=== PATIENT | female | born 1995 | race African-American/Black ===

== ENCOUNTER 2021-01-29 15:11 | Emergency (ER) | payer MEDICAID ==
[2021-01-29 15:48] VITALS: BP 112/73
--- NOTE | 2021-01-29 16:22 | ED Physician Documentation ---
History of Present Illness - Stated complaint Stated Complaint: CONGESTION,BODY ACHES - Chief complaint Chief Complaint: General - History obtained from History obtained from: Patient, Family - History of Present Illness Timing: Today Pain level max: 0 Pain level now: 0 - Additonal information Additional information: 26-year-old female states that she believes she was exposed to Covid about 2 weeks ago. She states she has had a mild dry cough and body aches since that time. Did not receive her Covid vaccination. Nothing makes it better or worse. No abdominal pain. Mild rhinorrhea and congestion. No vomiting. Denies any possibility of Review of Systems Constitutional: denies: Fever, Chills Nose: reports: Rhinorrhea / runny nose Cardiac: denies: Chest pain / pressure Respiratory: denies: Dyspnea, Wheezing GI: denies: Abdominal Pain, Vomiting, Diarrhea Skin: denies: Rash Musculoskeletal: denies: Neck pain, Back pain Neurologic: denies: Headache PD PAST MEDICAL HISTORY - Past Medical History Past Medical History: No - Past Surgical History Past Surgical History: Yes - Present Medications Home Medications: Ambulatory Orders Medication Instructions Recorded Confirmed HYDROcod/ACETAM 5/325 [Vicodin 1 - 2 ea PO Q6H #15 tablet 11/23/12 5/325] Sulfamethox/Trimeth 800/160 1 each PO BID #14 tablet 11/23/12 [Bactrim Ds] oxyCODONE/ACET 5/325 [Percocet 5 1 - 2 tab PO Q4-6H PRN #20 tablet 11/25/12 mg/325 mg] Benzonatate [Tessalon] 200 mg PO TID PRN #30 cap 01/29/21 Cetirizine HCl/Pseudoephedrine 1 each PO BID PRN #30 ea 01/29/21 [Zyrtec-D Tablet] - Allergies Allergies/Adverse Reactions: Allergies Allergy/AdvReac Type Severity Reaction Status Date / Time No Known Drug Allergies Allergy Verified 01/29/21 15:14 - Living Situation Living Arrangement: reports: Other (intermediate) - Social History Does the pt smoke?: No Smoking Status: Never smoker Does the pt drink ETOH?: No Does the pt have substance abuse?: No - Immunizations Immunizations are current?: Yes PD ED PE NORMAL - Vitals Vital signs reviewed: Yes - General General: Alert and oriented X 3, No acute distress - HEENT HEENT: Moist mucous membranes - Neck Neck: Supple, no meningeal sign - Cardiac Cardiac: RRR - Respiratory Respiratory: No respiratory distress, Clear bilaterally - Abdomen Abdomen: Soft, Non tender, Non distended - Derm Derm: Warm and dry - Neuro Neuro: Alert and oriented X 3 - Psych Psych: Normal mood Results - Vitals Vitals: Vital Signs - 24 hr 01/29/21 15:14 Temperature 98.6 C H Heart Rate 90 Respiratory 16 Rate Blood Pressure 112/73 O2 Saturation 100 Oxygen O2 Source Room air PD MEDICAL DECISION MAKING - ED course Complexity details: considered differential, d/w patient ED course: Patient with Covid exposure. Requesting Covid test. This was performed. We will have the patient quarantine until results are available. No hypoxia. No respiratory distress. No indication for imaging at this time. Patient counseled regarding signs and symptoms for which I believe and urgent re- evaluation would be necessary. Patient with good understanding of and agreement to plan and is comfortable going home at this time This document was made in part using voice recognition software. While efforts are made to proofread this document, sound alike and grammatical errors may occur. Departure - Departure Disposition: Home, Self Care Clinical Impression: Viral URI Condition: Good Instructions: ED URI Viral Follow-Up: your,doctor as needed. [Other] Prescriptions: Benzonatate [Tessalon] 200 mg PO TID PRN #30 cap PRN Reason: Cough Cetirizine HCl/Pseudoephedrine [Zyrtec-D Tablet] 1 each PO BID PRN #30 ea PRN Reason: nasal congestion Comments: Follow-up with your doctor as needed for further care. You have a Covid test pending. You need to self quarantine until the result is done and negative. Do not leave your house. Do not get near anybody. The results should be done in 48 to 72 hours. We will call with a positive result, the fastest way to get a negative result for confirmation though is to go to the hospital website at [email or web address], click on the my [facility] tab and sign up for the patient portal. If any friends or family get sick and would like to have a Covid test done, but do not have signs or symptoms that would necessitate being hospitalized, we encourage testing through our coronavirus swabbing station, call [phone] to schedule an appointment. Discharge Date/Time: 01/29/21 16:41
== END 2021-01-29 16:41 | disposition home or self-care (01) ==
LOC: ED 15:11
DX: U07.1 COVID-19 (principal)
CPT/HCPCS: 99283; 99284

== ENCOUNTER 2021-11-06 18:52 | Emergency (ER) | payer OTHER, MEDICAID ==
[2021-11-06 18:59] VITALS: BP 109/62
--- NOTE | 2021-11-06 19:06 | ED Physician Documentation ---
History of Present Illness - Stated complaint Stated Complaint: FIT - Chief complaint Chief Complaint: General - History obtained from History obtained from: Patient, Police - History of Present Illness Timing: Today Pain level max: 0 Pain level now: 0 - Additonal information Additional information: Patient was arrested by police. She states that she is 3 months . She has no complaints. No pelvic pain, vaginal bleeding. No nausea or vomiting. Police brought her here to "get checked" before taking her to detention. They have no specific complaints or concerns either. They state that their chief told them to come in. Patient is a 5 para 4. Review of Systems Constitutional: denies: Fever Respiratory: denies: Cough GI: denies: Abdominal Pain, Vomiting, Diarrhea : denies: Dysuria, Frequency, Hesitancy, Discharge Skin: denies: Rash Musculoskeletal: denies: Neck pain, Back pain Neurologic: denies: Headache PD PAST MEDICAL HISTORY - Past Medical History Past Medical History: No - Past Surgical History Past Surgical History: Yes - Present Medications Home Medications: Ambulatory Orders Medication Instructions Recorded Confirmed HYDROcod/ACETAM 5/325 [Vicodin 1 - 2 ea PO Q6H #15 tablet 11/23/12 5/325] Sulfamethox/Trimeth 800/160 1 each PO BID #14 tablet 11/23/12 [Bactrim Ds] oxyCODONE/ACET 5/325 [Percocet 5 1 - 2 tab PO Q4-6H PRN #20 tablet 11/25/12 mg/325 mg] Benzonatate [Tessalon] 200 mg PO TID PRN #30 cap 01/29/21 Cetirizine HCl/Pseudoephedrine 1 each PO BID PRN #30 ea 01/29/21 [Zyrtec-D Tablet] - Allergies Allergies/Adverse Reactions: Allergies Allergy/AdvReac Type Severity Reaction Status Date / Time No Known Drug Allergies Allergy Verified 11/06/21 18:57 - Social History Does the pt smoke?: No Smoking Status: Never smoker Does the pt drink ETOH?: No Does the pt have substance abuse?: No - Immunizations Immunizations are current?: Yes PD ED PE NORMAL - Vitals Vital signs reviewed: Yes - General General: Alert and oriented X 3, No acute distress - HEENT HEENT: PERRL, Moist mucous membranes - Neck Neck: Supple, no meningeal sign - Cardiac Cardiac: RRR, Strong equal pulses - Respiratory Respiratory: No respiratory distress, Clear bilaterally - Abdomen Abdomen: Soft, Non tender, Non distended - Derm Derm: Warm and dry - Extremities Extremities: No edema - Neuro Neuro: Alert and oriented X 3 - Psych Psych: Normal mood, Normal affect Results - Vitals Vitals: Vital Signs - 24 hr 11/06/21 18:53 Temperature 37.0 C Heart Rate 91 Respiratory 20 Rate Blood Pressure 109/62 O2 Saturation 100 Oxygen O2 Source Room air PD MEDICAL DECISION MAKING - ED course Complexity details: considered differential, d/w patient ED course: Bedside ultrasound reveals an intrauterine , biparietal diameter approximately 15 weeks 5 days. heart rate of 158 bpm. Fetus appears active. The patient has no complaints today. Patient encouraged to follow-up with OB for care and to continue her vitamins that she states she is taking at home. She will be discharged into police custody. This document was made in part using voice recognition software. While efforts are made to proofread this document, sound alike and grammatical errors may occur. Departure - Departure Disposition: 01 Home, Self Care Clinical Impression: Intrauterine Condition: Good Instructions: ED Care, ED Preg Established Normal Sxs Follow-Up: [facility] [Provider Group] - Within 1 week Comments: You are approximately 15 weeks and 5 days along currently. There is a heartbeat today. It is important that you follow-up with OB for further care. Continue your vitamins.
== END 2021-11-06 19:12 | disposition home or self-care (01) ==
LOC: ED 18:52
DX: Z02.89 Encounter for other administrative examinations (principal); Z3A.15 15 weeks gestation of pregnancy
CPT/HCPCS: 99281; 99282

== ENCOUNTER 2022-04-29 10:00 | Outpatient (CLI) | payer MEDICAID | END 2022-04-29 23:59 | disposition critical access hospital (66) | LOC: EMS 10:00 | DX: Z34.83 Encounter for supervision of other normal pregnancy, third trimester (principal) | CPT/HCPCS: A0425; A0429; A0999 ==

== ENCOUNTER 2022-04-29 10:20 | Inpatient (IN) | payer MEDICAID ==
[2022-04-29] MEDS ORDERED: LACTATED RINGERS 1,000 ML ONE (10:33)
[2022-04-29] MEDS ORDERED: TRANEXAMIC ACID IN NACL 1,000 MG/100 ML BAG IV PRN (10:36)
[2022-04-29] MEDS ORDERED: CARBOPROST TROMETHAMINE 250 MCG/ML AMP IM PRN (10:36)
[2022-04-29] MEDS ORDERED: miSOPROStoL 200 MCG TABLET BC PRN (10:36)
[2022-04-29] MEDS ORDERED: LABETALOL 20 MG/4 ML SYRINGE IVP PRN ×3 (10:36)
[2022-04-29] MEDS ORDERED: hydrALAZINE INJ 20 MG/ML VIAL IVP PRN ×2 (10:36)
[2022-04-29] MEDS ORDERED: METHYLERGONOVINE 0.2 MG/ML VIAL IM PRN (10:36)
[2022-04-29] MEDS ORDERED: miSOPROStoL 200 MCG TABLET PR PRN (10:36)
[2022-04-29] MEDS ORDERED: NIFEdipine 10 MG CAPSULE PO PRN (10:36)
[2022-04-29] MEDS ORDERED: OXYTOCIN/SODIUM CHLORIDE 500 ML IV PRN ×2 (10:36→15:21)
[2022-04-29] MEDS ORDERED: OXYTOCIN 10 UNIT/ML VIAL IM PRN (10:36)
[2022-04-29] MEDS ORDERED: LACTATED RINGERS 500 ML IV ONE (10:36)
[2022-04-29] MEDS ORDERED: SODIUM CHLORIDE FLUSH 0.9% 10 ML SYRINGE IVP PRN ×2 (10:36→15:21)
[2022-04-29] MEDS ORDERED: ceFAZolin 2 GM in SODIUM CHLORIDE 0.9% 100ML 100 ML IV STA (10:41)
[2022-04-29] MEDS ORDERED: SODIUM CHLORIDE FLUSH 0.9% 10 ML SYRINGE IVP SCH ×2 (11:00→17:00)
[2022-04-29] MEDS ORDERED: CEFAZOLIN 2G/50ML 0.9% NS 2 GM/50 ML BAG IV ONE (11:00)
[2022-04-29] MEDS ORDERED: LACTATED RINGERS 1,000 ML IV SCH ×3 (11:00→16:00)
[2022-04-29] MEDS ORDERED: fentaNYL 100 MCG/2 ML VIAL ONE (11:03)
[2022-04-29] MEDS ORDERED: OXYTOCIN 10 UNIT/ML VIAL ONE (11:04)
--- NOTE | 2022-04-29 11:07 | ANESTHESIA ---
Pre-Anesthesia VS, & Labs - Diagnosis repeat section - Procedure section Vital Signs: Temp Pulse Resp BP Pulse Ox O2 Flow Rate 37.0 C 118 H 18 04/29/22 10:30 04/29/22 10:30 04/29/22 10:30 Height: 5 ft 3 in Weight (kg): 74.843 kg Body Mass Index: 29.2 BMI Classification: Overweight - NPO Other (pretzels at 10am, oatmeal at 8am) - Is Patient ?: Yes Home Medications and Allergies Active Medications Carboprost Tromethamine (Carboprost Tromethamine 250 Mcg/Ml Amp) 250 mcg IM .ONCE PRN PRN Reason: Hemorrhage Hydralazine HCl (Hydralazine Inj 20 Mg/Ml Vial) 5 - 10 mg IVP Q20M PRN; Protocol PRN Reason: SBP> or= 160 OR DBP> or= 110 Hydralazine HCl (Hydralazine Inj 20 Mg/Ml Vial) 10 mg IVP .ONCE PRN; Protocol PRN Reason: SBP> or= 160 OR DBP> or= 110 Oxytocin/Sodium Chloride (Pitocin/Sodium Chloride) 500 mls @ 999 mls/hr IV PRN PRN; Protocol PRN Reason: POST- HEMORR PREVENTION Tranexamic Acid (Tranexamic 1,000 Mg/100ml-Nacl) 1,000 mg in 100 mls @ 600 mls/hr IV Q30M PRN PRN Reason: EBL >1200mL and within 3hr Lactated Ringer's (Lr) 500 mls @ 999 mls/hr IV ONCE ONE Stop: 04/29/22 11:06 Lactated Ringer's (Lr) 1,000 mls @ 125 mls/hr IV .Q8H NAUN Cefazolin/Sodium Chloride (Ancef 2 Grams/50ml) 2 gm in 50 mls @ 100 mls/hr IV ONCE ONE Stop: 04/29/22 11:29 Labetalol HCl (Labetalol 20 Mg/4 Ml Syringe) 20 - 80 mg IVP Q10M PRN; Protocol PRN Reason: SBP> or= 160 OR DBP> or= 110 Labetalol HCl (Labetalol 20 Mg/4 Ml Syringe) 20 mg IVP .ONCE PRN; Protocol PRN Reason: SBP> or= 160 OR DBP> or= 110 Labetalol HCl (Labetalol 20 Mg/4 Ml Syringe) 20 - 40 mg IVP Q10M PRN; Protocol PRN Reason: SBP> or= 160 OR DBP> or= 110 Methylergonovine Maleate (Methylergonovine 0.2 Mg/Ml Vial) 0.2 mg IM .ONCE PRN PRN Reason: Hemorrhage Misoprostol (Misoprostol 200 Mcg Tablet) 600 mcg BC .ONCE PRN PRN Reason: Hemorrhage Misoprostol (Misoprostol 200 Mcg Tablet) 800 mcg MT .ONCE PRN PRN Reason: Hemorrhage Nifedipine (Nifedipine 10 Mg Capsule) 10 - 20 mg PO Q20M PRN; Protocol PRN Reason: SBP> or= 160 OR DBP> or= 110 Oxytocin (Oxytocin 10 Unit/Ml Vial) 10 unit IM .ONCE PRN PRN Reason: Step One if no IV access. Sodium Chloride (Sodium Chloride Flush 0.9% 10 Ml Syringe) 10 ml IVP PRN PRN PRN Reason: NEEDED PER PROVIDER ORDERS Sodium Chloride (Sodium Chloride Flush 0.9% 10 Ml Syringe) 10 ml IVP Q8H NAUN Allergies/Adverse Reactions: Allergies Allergy/AdvReac Type Severity Reaction Status Date / Time No Known Drug Allergies Allergy Verified 11/06/21 18:57 Anes History & Medical History - Anesthetic History Anesthesia Complications: reports: No previous complications - Medical History Cardiovascular: reports: None Pulmonary: reports: None Smoking Status: Never smoker History of Cancer?: No - Surgical History Gynecologic: reports: section - Obstetrical History Complications: reports: None OB Anesthesia History: 4 C/S's in past, was getting care at [facility], in labor 1cm dilated per Dr. Chen Exam General: Alert, Oriented x3, Mild distress Dental: WNL Mouth Opening: Greater than 4 Fingerbreadths Mallampati classification: I Thyromental Distance: greater than 6 cm Respiratory: Lungs clear Cardiovascular: Regular rate Plan Anesthesia Type: Spinal Consent for Procedure(s) Verified and Reviewed: Yes Code Status: Attempt Resuscitation ASA classification: 2-Mild systemic disease Is this case an emergency?: Yes
[2022-04-29 11:13] LABS: BASOPHILS % (AUTO) 0.6 %; EOSINOPHILS % (AUTO) 0.6 %; HCT - HEMATOCRIT 36.6 % (37.0-47.0); HGB - HEMOGLOBIN 11.6 g/dL (12.0-16.0); LYMPHOCYTES # (AUTO) 1.4 10^3/uL (1.5-3.5); LYMPHOCYTES % (AUTO) 38.9 %; MEAN CORPUSCULAR HEMOGLOBIN 28.6 pg (27.0-31.0); MEAN CORPUSCULAR HGB CONC 31.7 g/dL (32.0-36.0); MEAN CORPUSCULAR VOLUME 90.4 fL (81.0-99.0); MEAN PLATELET VOLUME 11.5 fL (7.9-10.8); MONOCYTES # (AUTO) 0.4 10^3/uL (0.0-1.0); MONOCYTES % (AUTO) 11.8 %; NEUTROPHILS # (AUTO) 1.7 10^3/uL (1.5-6.6); NEUTROPHILS % (AUTO) 48.1 %; PLT - PLATELET COUNT 180 10^3/uL (130-450); RED BLOOD COUNT 4.05 10^6/uL (4.20-5.40); RED CELL DISTRIBUTION WIDTH 12.9 % (12.0-15.0); WHITE BLOOD COUNT 3.5 x10^3/uL (4.8-10.8)
--- NOTE | 2022-04-29 11:27 | HISTORY & PHYSICAL EXAMINATION ---
Admit History - Visit Reason Visit Reason: Contractions - : 5 Parity: 4 Care: positive: None Risk/History: positive: None Complications This : positive: <than 3 visits Smoking Status: Current every day smoker Meds/Allgy - Home Medications Home Medications: Ambulatory Orders Medication Instructions Recorded Confirmed HYDROcod/ACETAM 5/325 [Vicodin 1 - 2 ea PO Q6H #15 tablet 11/23/12 5/325] Sulfamethox/Trimeth 800/160 1 each PO BID #14 tablet 11/23/12 [Bactrim Ds] oxyCODONE/ACET 5/325 [Percocet 5 1 - 2 tab PO Q4-6H PRN #20 tablet 11/25/12 mg/325 mg] Benzonatate [Tessalon] 200 mg PO TID PRN #30 cap 01/29/21 Cetirizine HCl/Pseudoephedrine 1 each PO BID PRN #30 ea 01/29/21 [Zyrtec-D Tablet] - Allergies Allergies/Adverse Reactions: Allergies Allergy/AdvReac Type Severity Reaction Status Date / Time No Known Drug Allergies Allergy Verified 11/06/21 18:57 Review of Systems - All Other Systems All Other Systems: reports: Reviewed and negative Physical - Abdominal Exam Vital Signs: Temp Pulse Resp BP Pulse Ox O2 Flow Rate 98.6 F 118 H 18 04/29/22 10:30 04/29/22 10:30 04/29/22 10:30 Contraction Frequency (min/apart): 4 Contraction Intensity: positive: Mild to moderate Uterine Resting Tone: positive: Soft - Monitoring Heart Rate Baseline: 140 Strip Review: positive: Category I - Presentation Presentation: positive: Vertex - Vaginal Exam Membranes: positive: Membranes intact Dilation (in cm): 1 Effacement (%): 100 Station: positive: -2 Cervical Position: positive: Midposition Plan for Labor - Plan For Labor I expect patient to be DC'd or transferred within 96 hours.: Yes Plan for Labor: 27yo at about 40w by bedside US during [facility] visit at 15w brought in by ambulance in labor 1. Prior CD x4 per patient 2. No care, per patient care at [facility]. When attempting to obtain records, Lela says she has not been a patient there since 2019. 3. Tobacco use daily 10cig/day 4. Declines drug testing - Admit - labs - Plan for RCD - Obtain US to confirm dating/growth and assess placenta for location and accreta risk - Social work consult placed. Support person with patient, per patient her father's girlfriend. Initially patient reported her children live with family. Later says they live with her but are staying with family while she delivers today.
[2022-04-29 11:30] LABS: ALBUMIN 3.2 g/dL (3.2-5.5); ALBUMIN/GLOBULIN RATIO 0.9 (1.0-2.2); BILIRUBIN,TOTAL 0.6 mg/dL (0.2-1.0); CALCIUM 8.6 mg/dL (8.5-10.3); CREATININE 0.7 mg/dL (0.4-1.0); POTASSIUM 3.6 mmol/L (3.5-5.0); TOTAL PROTEIN 6.9 g/dL (6.7-8.2)
[2022-04-29] MEDS ORDERED: TERBUTALINE 1 MG/ML VIAL SUBQ ONE (11:44)
[2022-04-29] MEDS ORDERED: TERBUTALINE 1 MG/ML VIAL SUBQ STA ×2 (11:49→13:08)
--- NOTE | 2022-04-29 12:29 | Ultrasound Report ---
PROCEDURE: OB F/U or Repeat INDICATIONS: Unknown gestation, placenta location OUTSIDE/PRIOR DATING DATA: Last menstrual period (LMP): Unknown. LMP-based estimated date of delivery (FINN): Not available. First dating scan (date and location): 04/29/2022, [facility]. Estimated date of delivery (FINN) from first dating scan: 05/11/2022. TECHNIQUE: Real-time scanning was performed of the fetus, with image documentation and biometric measurements. COMPARISON: None. FINDINGS: General: A single living intrauterine gestation is present. Presentation: Vertex Placenta: Placental position is anterior, without previa. Amniotic fluid index: 11.4 cm, 38.8 for gestational age. heart rate: 157 beats per minute. Maternal cervical canal: 2.6 cm long; normal length is 2.5 cm or more. biometrics: Biparietal diameter: 9.27 cm, 37 weeks, 5 days Head circumference: 33.82 cm, 38 weeks, 6 days Abdominal circumference: 33.86 cm, 37 weeks, 5 days Femur length: 7.59 cm, 38 weeks, 6 days Estimated gestational age from initial scan: Not available Composite gestational age from present scan: 38 weeks, 2 days Estimated weight and percentile: 3402 g, 31.9% Measurement variability in biometric dating: +/- 10 days from 12-20 weeks gestation, +/- 2 weeks from 20-30 weeks gestation, +/- 3 weeks at 30 weeks gestation or more. Other: Not applicable. IMPRESSION: 1. Single live intrauterine gestation with a composite gestational age of 38 weeks, 2 days. 2. Cervical length of 2.6 cm. 3. JAMES within normal limits. Reviewed by: Manuela Galloway MD on 04/29/2022 12:28 PM PDT Approved by: Manuela Galloway MD on 04/29/2022 12:28 PM PDT Station ID: [id number]
[2022-04-29 12:34] LABS: ESTIMATED AVERAGE GLUCOSE 114 mg/dL (70-100); HEMOGLOBIN A1c% 5.6 % (4.27-6.07)
[2022-04-29] MEDS ORDERED: PHENYLEPHRINE 10 MG/ML VIAL ONE (13:35)
[2022-04-29] MEDS ORDERED: MORPHINE PF 5 MG/10 ML VIAL ONE (13:36)
--- OUTSIDE RECORDS SUMMARY | 2022-04-29 13:56 | EXTERNAL MEDICAL SUMMARY RPT | Continuity of Care Document ---
:1995 Author Organization [facility] Address [address] [place] [address] Phone Care Team Providers Name Role Phone Unavailable Unavailable Unavailable Ariela Rn, Génesis Unavailable Unavailable Ariela Rn, Génesis Unavailable Unavailable Allergies No information. Encounters No information. Functional Status No information. Immunizations No information. Medications date description facility +0000 No Known Medications [facility] [phone] No Known Medications [facility] Problems No information. Procedures date description facility +0000 Visit Code Hold [facility] +0000 Visit Code Hold [facility] +0000 Visit Code Hold [facility] [phone] Visit Code Hold [facility] [phone] Visit Code Hold [facility] Results/Labs No information. Social History date description facility +0000 Unknown if ever smoked [facility] [id number] Unknown if ever smoked [facility] Vital Signs date measurement value units +0000 weight_metric weight_metric 76.2 kg [id number]+0000 weight_standard weight_standard 168 lb [id number]+0000 BP_diastolic BP_diastolic 65 mm[H g] [id number]+0000 BP_systolic BP_systolic 106 mm[Hg] [id number]+0000 heart_rate heart_rate 107 /min [id number]+0000 respiration_rate respiration_rate 14 /min [id number]+0000 temperature_metric temperature_metric 37.39 C [id number]+0000 temperature_standard temperature_standard 9 9.3 F +0000 weight_metric weight_metric 76.2 kg +0000 weight_standard weight_standard 168 lb +0000 BP_diastolic BP_diastolic 64 mmHg +0000 BP_systolic BP_systolic 97 mmHg +0000 heart_rate heart_rate 72 /min +0000 respiration_rate respiration_rate 16 /min +0000 temperature_metric temperature_metric 36.44 C +0000 temperature_standard temperature_standard 9 7.6 F
[2022-04-29] MEDS ORDERED: NALOXONE 0.4 MG/ML VIAL IVP PRN (13:59)
[2022-04-29] MEDS ORDERED: fentaNYL 100 MCG/2 ML VIAL IVP PRN (13:59)
[2022-04-29] MEDS ORDERED: ONDANSETRON 4 MG/2 ML VIAL IVP PRN (13:59)
[2022-04-29] MEDS ORDERED: ATROPINE ABBOJECT 1 MG/10 ML SYRINGE IVP PRN (13:59)
[2022-04-29] MEDS ORDERED: METOCLOPRAMIDE 10 MG/2 ML VIAL IVP PRN (13:59)
[2022-04-29] MEDS ORDERED: ePHEDrine 50 MG/ML VIAL IVP PRN (13:59)
[2022-04-29] MEDS ORDERED: MORPHINE 2 MG/ML CARPUJECT IVP PRN (13:59)
[2022-04-29] MEDS ORDERED: HYDROmorphone 0.5 MG/0.5 ML SYRINGE IVP PRN (13:59)
[2022-04-29] MEDS ORDERED: ONDANSETRON 4 MG/2 ML VIAL ONE (14:07)
[2022-04-29] MEDS ORDERED: LACTATED RINGERS 1,000 ML IV ONE (15:04)
--- NOTE | 2022-04-29 15:12 | ANESTHESIA POST OP EVALUATION ---
Anesthesia Post Eval - Post Anesthesia Eval Vitals: Last Vital Signs Temp 37.0 C 04/29/22 11:07 Pulse 95 04/29/22 11:07 Resp 20 04/29/22 11:07 BP 136/83 H 04/29/22 11:07 Pulse Ox O2 Flow Rate CV Function Including HR & BP: Stable Pain Control: Satisfactory Nausea & Vomiting: Negative Mental Status: Baseline Respiratory Status: Airway Patent Hydration Status: Satisfactory Anesthesia Complications: None
[2022-04-29] MEDS ORDERED: SIMETHICONE CHEW 80 MG TABLET PO PRN (15:21)
[2022-04-29] MEDS ORDERED: ONDANSETRON ODT 4 MG TABLET TL PRN (15:21)
--- NOTE | 2022-04-29 15:27 | DELIVERY NOTE ---
Delivery Note - Infant Delivery Method Infant Delivery Method: positive: Repeat - Presentation Presentation: positive: Vertex - Nuchal Cord Nuchal Cord: positive: None - Anesthetic Anesthetic Type: - Amniotic Fluid Description Amniotic Fluid Description: positive: Thick meconium - Delivery Outcome Delivery Outcome: positive: Livebirth - [place] : positive: Bulb syringe, Stimulated, Warmed, Warmer used sex: positive: Female - Cord Cord: positive: 3 vessels - Placenta Placenta: positive: Intact, Expressed - Estimated Blood Loss Estimated Blood Loss (in cc): 600 - Delivery Comments (Free Text/Narrative) Delivery Comments (Free Text/Narrative): Under spinal anaesthetic with a Delgado catheter inserted, the patient was prepped and draped in the usual sterile fashion in the supine position with a leftward tilt. A Pfannensteil incision was made through the patients previous incision. The incision was carried down to the fascia with sharp dissection and cautery. The fascia was incised transversely and dissected off the rectus muscle using (blunt/sharp) dissection. Electrocautery was used for hemostasis. Moderate amount of adhesions noted. The peritoneum was opened taking care not to injure the bladder. The vesicouterine peritoneum was dissected off the lower uterine segment. The lower segment was assessed and a low transverse incision was made. The uterine incision was extended bluntly. The fetus was presenting as a vertex. Thick meconium noted. The head was delivered without difficulty and the rest of the body followed easily. After one minute of delayed cord clamping, the cord was clamped twice and cut and the baby transferred to the warmer, awaiting the pediatric staff. Cord blood obtained. The placenta was then delivered with assistance. The uterus was explored and was empty of all tissue. The uterus was exteriorized for better visualization. The uterine incision was then closed in a locking fashion with 0- Monocryl. Tubes and ovaries were examined and appeared normal. Hemostasis noted at all dissection sites. Fascia closed with 0-Vicryl in a running unlocked fashion. Subcutaneous layer reapproximated with 2-0 Vicryl. The skin was then reapproximated with 3-0 Monocryl. At the end of the procedure all sponges, instruments, and sharps were counted and correct. Estimated blood loss was 600cc. The patient and taken to the recovery in stable condition.
[2022-04-29] MEDS: KETOROLAC 30 MG/ML VIAL IVP SCH (20:33)
[2022-04-29] MEDS: DOCUSATE SODIUM 100 MG CAPSULE PO SCH (21:43)
[2022-04-29] MEDS: ACETAMINOPHEN 500 MG TABLET PO SCH (21:43)
[2022-04-30 03:08] LABS: HBsAG SCREEN Negative (Negative); HCV AB <0.1 s/co ratio (0.0-0.9)
[2022-04-30] MEDS: KETOROLAC 30 MG/ML VIAL IVP SCH ×2 (03:31→09:44)
[2022-04-30] MEDS: ACETAMINOPHEN 500 MG TABLET PO SCH ×3 (05:44→23:53)
[2022-04-30 05:56] LABS: BASOPHILS % (AUTO) 0.4 %; EOSINOPHILS # (AUTO) 0.1 10^3/uL (0.0-0.7); EOSINOPHILS % (AUTO) 0.7 %; HCT - HEMATOCRIT 31.4 % (37.0-47.0); HGB - HEMOGLOBIN 10.1 g/dL (12.0-16.0); LYMPHOCYTES # (AUTO) 1.6 10^3/uL (1.5-3.5); LYMPHOCYTES % (AUTO) 22.4 %; MEAN CORPUSCULAR HEMOGLOBIN 29.3 pg (27.0-31.0); MEAN CORPUSCULAR HGB CONC 32.2 g/dL (32.0-36.0); MEAN PLATELET VOLUME 10.8 fL (7.9-10.8); MONOCYTES # (AUTO) 0.9 10^3/uL (0.0-1.0); MONOCYTES % (AUTO) 12.8 %; NEUTROPHILS # (AUTO) 4.5 10^3/uL (1.5-6.6); NEUTROPHILS % (AUTO) 63.4 %; PLT - PLATELET COUNT 148 10^3/uL (130-450); RED BLOOD COUNT 3.45 10^6/uL (4.20-5.40); RED CELL DISTRIBUTION WIDTH 13.1 % (12.0-15.0); WHITE BLOOD COUNT 7.1 x10^3/uL (4.8-10.8)
[2022-04-30 07:10] LABS: RPR Non Reactive (Non Reactive)
--- NOTE | 2022-04-30 08:33 | PROVIDER PROGRESS NOTE ---
Subjective - Prog Note Date Prog Note Date: 04/30/22 Prog Note Time: 08:32 - Subjective Subjective: Subjective Patient reports she is doing well. Lochia appropriate. Denies heavy bleeding. Ambulating. Pelvic and abdominal pain well-controlled. Tolerating oral intake. Diet: Regular. Voiding without difficulty. Passing flatus. Denies BM. Patient is bonding with baby in room Bottle feeding at this time. Denies feeling lightheaded, dizzy or excessively fatigued. Objective General: Alert, oriented, no apparent distress. Cardiovascular: Regular rate. Regular rhythm. Lungs: No increased work of breathing. Abdomen: Uterus firm. Below umbilicus. No guarding or rebound. Incision: Clean, dry, and intact. Bandage removed today Assessment and Plan day 1. -Routine care -Anticipate discharge tomorrow Repeat section x5 -Discussed risks of each subsequent surgery, although scar tissue was better than anticipated. Contraceptive planning -Considering Nexplanon, but wants depo-provera in the interim. Dose ordered. Objective - Vital Signs/Intake & Output Vital Signs: Vital Signs x48h Temp Pulse Resp BP Pulse Ox 04/30/22 03:33 208.2 F H 69 16 103/63 100 Intake & Output: Intake & Output 04/27/22 04/28/22 04/29/22 04/30/22 23:59 23:59 23:59 23:59 Intake Total 2300 730 Output Total 475 1130 Balance 1825 -400 - Lab Results Fish Bones: 04/30/22 05:50 04/29/22 11:04 Other Labs: Lab Results x24hrs 04/30/22 04/29/22 04/29/22 Range/Units 05:50 11:04 11:04 WBC 7.1 (4.8-10.8) x10^3/uL RBC 3.45 L (4.20-5.40) 10^6/uL Hgb 10.1 L (12.0-16.0) g/dL Hct 31.4 L (37.0-47.0) % MCV 91.0 (81.0-99.0) fL MCH 29.3 (27.0-31.0) pg MCHC 32.2 (32.0-36.0) g/dL RDW 13.1 (12.0-15.0) % Plt Count 148 (130-450) 10^3/uL MPV 10.8 (7.9-10.8) fL Neut # (Auto) 4.5 (1.5-6.6) 10^3/uL Lymph # (Auto) 1.6 (1.5-3.5) 10^3/uL [place] # (Auto) 0.9 (0.0-1.0) 10^3/uL Eos # (Auto) 0.1 (0.0-0.7) 10^3/uL Baso # (Auto) 0.0 (0.0-0.1) 10^3/uL Absolute Nucleated RBC 0.00 x10^3/uL Nucleated RBC % 0.0 /100WBC Sodium (135-145) mmol/L Potassium (3.5-5.0) mmol/L Chloride (101-111) mmol/L Carbon Dioxide (21-32) mmol/L Anion Gap (6-13) BUN (6-20) mg/dL Creatinine (0.4-1.0) mg/dL Estimated GFR (MDRD) (>89) Glucose (70-100) mg/dL Estimat Average Glucose 114 H (70-100) mg/dL Hemoglobin A1c % 5.6 (4.27-6.07) % Calcium (8.5-10.3) mg/dL Total Bilirubin (0.2-1.0) mg/dL AST (10-42) IU/L ALT (10-60) IU/L Alkaline Phosphatase (42-121) IU/L Total Protein (6.7-8.2) g/dL Albumin (3.2-5.5) g/dL Globulin (2.1-4.2) g/dL Albumin/Globulin Ratio (1.0-2.2) RPR (Non Reactive) Hep Bs Antigen (Negative) Hepatitis C Antibody (0.0-0.9) s/co ratio Hepatitis C Interp (.) Rubella IgG Antibody 28.1 IU/mL Blood Type Antibody Screen Crossmatch IS Only 04/29/22 04/29/22 04/29/22 Range/Units 11:04 11:04 11:04 WBC 3.5 L (4.8-10.8) x10^3/uL RBC 4.05 L (4.20-5.40) 10^6/uL Hgb 11.6 L (12.0-16.0) g/dL Hct 36.6 L (37.0-47.0) % MCV 90.4 (81.0-99.0) fL MCH 28.6 (27.0-31.0) pg MCHC 31.7 L (32.0-36.0) g/dL RDW 12.9 (12.0-15.0) % Plt Count 180 (130-450) 10^3/uL MPV 11.5 H (7.9-10.8) fL Neut # (Auto) 1.7 (1.5-6.6) 10^3/uL Lymph # (Auto) 1.4 L (1.5-3.5) 10^3/uL [place] # (Auto) 0.4 (0.0-1.0) 10^3/uL Eos # (Auto) 0.0 (0.0-0.7) 10^3/uL Baso # (Auto) 0.0 (0.0-0.1) 10^3/uL Absolute Nucleated RBC 0.00 x10^3/uL Nucleated RBC % 0.0 /100WBC Sodium 132 L (135-145) mmol/L Potassium 3.6 (3.5-5.0) mmol/L Chloride 100 L (101-111) mmol/L Carbon Dioxide 21 (21-32) mmol/L Anion Gap 11.0 (6-13) BUN 12 (6-20) mg/dL Creatinine 0.7 (0.4-1.0) mg/dL Estimated GFR (MDRD) 122 (>89) Glucose 67 L (70-100) mg/dL Estimat Average Glucose (70-100) mg/dL Hemoglobin A1c % (4.27-6.07) % Calcium 8.6 (8.5-10.3) mg/dL Total Bilirubin 0.6 (0.2-1.0) mg/dL AST 35 (10-42) IU/L ALT 19 (10-60) IU/L Alkaline Phosphatase 115 (42-121) IU/L Total Protein 6.9 (6.7-8.2) g/dL Albumin 3.2 (3.2-5.5) g/dL Globulin 3.7 (2.1-4.2) g/dL Albumin/Globulin Ratio 0.9 L (1.0-2.2) RPR (Non Reactive) Hep Bs Antigen (Negative) Hepatitis C Antibody (0.0-0.9) s/co ratio Hepatitis C Interp (.) Rubella IgG Antibody IU/mL Blood Type B POSITIVE Antibody Screen NEGATIVE Crossmatch IS Only See Detail 04/29/22 04/29/22 Range/Units 11:04 11:04 WBC (4.8-10.8) x10^3/uL RBC (4.20-5.40) 10^6/uL Hgb (12.0-16.0) g/dL Hct (37.0-47.0) % MCV (81.0-99.0) fL MCH (27.0-31.0) pg MCHC (32.0-36.0) g/dL RDW (12.0-15.0) % Plt Count (130-450) 10^3/uL MPV (7.9-10.8) fL Neut # (Auto) (1.5-6.6) 10^3/uL Lymph # (Auto) (1.5-3.5) 10^3/uL [place] # (Auto) (0.0-1.0) 10^3/uL Eos # (Auto) (0.0-0.7) 10^3/uL Baso # (Auto) (0.0-0.1) 10^3/uL Absolute Nucleated RBC x10^3/uL Nucleated RBC % /100WBC Sodium (135-145) mmol/L Potassium (3.5-5.0) mmol/L Chloride (101-111) mmol/L Carbon Dioxide (21-32) mmol/L Anion Gap (6-13) BUN (6-20) mg/dL Creatinine (0.4-1.0) mg/dL Estimated GFR (MDRD) (>89) Glucose (70-100) mg/dL Estimat Average Glucose (70-100) mg/dL Hemoglobin A1c % (4.27-6.07) % Calcium (8.5-10.3) mg/dL Total Bilirubin (0.2-1.0) mg/dL AST (10-42) IU/L ALT (10-60) IU/L Alkaline Phosphatase (42-121) IU/L Total Protein (6.7-8.2) g/dL Albumin (3.2-5.5) g/dL Globulin (2.1-4.2) g/dL Albumin/Globulin Ratio (1.0-2.2) RPR Non Reactive (Non Reactive) Hep Bs Antigen Negative (Negative) Hepatitis C Antibody <0.1 (0.0-0.9) s/co ratio Hepatitis C Interp Comment (.) Rubella IgG Antibody IU/mL Blood Type Antibody Screen Crossmatch IS Only
[2022-04-30] MEDS: DOCUSATE SODIUM 100 MG CAPSULE PO SCH ×2 (09:44→23:53)
[2022-04-30] MEDS: NICOTINE 14 MG PATCH TOP SCH (14:54)
[2022-04-30] MEDS: IBUPROFEN 800 MG TABLET PO SCH ×2 (16:55→23:53)
[2022-05-01 00:08] LABS: HIV SCREEN 4TH GENERATION Non Reactive (Non Reactive)
[2022-05-01] MEDS: IBUPROFEN 800 MG TABLET PO SCH ×3 (04:53→21:20)
[2022-05-01] MEDS: oxyCODONE 5 MG TABLET PO PRN ×4 (05:49→21:23)
[2022-05-01] MEDS: DOCUSATE SODIUM 100 MG CAPSULE PO SCH (09:48)
[2022-05-01] MEDS: ACETAMINOPHEN 500 MG TABLET PO SCH ×2 (09:48→18:30)
--- NOTE | 2022-05-01 12:34 | PROVIDER PROGRESS NOTE ---
Subjective - Prog Note Date Prog Note Date: 05/01/22 - Subjective Pt reports feeling: Improved Subjective: Subjective Patient reports she is doing well. Lochia appropriate. Denies heavy bleeding. Ambulating. Pelvic and abdominal pain well-controlled. Tolerating oral intake. Diet: Regular. Voiding without difficulty. Passing flatus. Denies BM. Patient is bonding with baby in nursery Bottle feeding at this time. Denies feeling lightheaded, dizzy or excessively fatigued. Control: Depo-Provera, received injection already Objective General: Alert, oriented, no apparent distress. Cardiovascular: Regular rate. Regular rhythm. Lungs: No increased work of breathing. Abdomen: Uterus firm. Below umbilicus. No guarding or rebound. Incision: Clean, dry, and intact. Extremities: No edema, no cords palpated. Distal pulses intact., Assessment and Plan day 2. -Routine care -Anticipate discharge tomorrow -Good pain control. Minimal use of opioid medications. Drug abuse in Overall handling situation well. Her father came to visit today, this steered her up greatly. Patient has been very cooperative throughout her stay. She understands pain will likely be in temporary placement, and patient wants to make goals towards sobriety. Objective - Vital Signs/Intake & Output Vital Signs: Vital Signs x48h Temp Pulse Resp BP Pulse Ox 05/01/22 09:55 97.7 F 71 16 108/63 96 Intake & Output: Intake & Output 04/28/22 04/29/22 04/30/22 05/01/22 23:59 23:59 23:59 23:59 Intake Total 2300 2310 1100 Output Total 475 1580 Balance 7300 857 1026 - Lab Results Fish Bones: 04/30/22 05:50 04/29/22 11:04 Other Labs: Lab Results x24hrs 04/29/22 Range/Units 11:04 HIV 1&2 Ab/P24 Ag 4thGn Non Reactive (Non Reactive)
[2022-05-01] MEDS: NICOTINE 14 MG PATCH TOP SCH (13:40)
[2022-05-02] MEDS: oxyCODONE 5 MG TABLET PO PRN ×3 (00:30→10:06)
[2022-05-02] MEDS: IBUPROFEN 800 MG TABLET PO SCH ×2 (03:30→10:06)
[2022-05-02] MEDS: DOCUSATE SODIUM 100 MG CAPSULE PO SCH ×2 (03:30→10:06)
[2022-05-02] MEDS: ACETAMINOPHEN 500 MG TABLET PO SCH (03:30)
[2022-05-02 09:12] VITALS: BP 107/60
--- NOTE | 2022-05-02 12:59 | Discharge Plan ---
Discharge Plan Problem Reviewed?: Yes Disposition: Home, Self Care Condition: Good Diet: Regular Activity Restrictions: No Restrictions Shower Restrictions: No Driving Restrictions: No Instruction Topics: , Depression Care Goals: Rehabilitation program in [place] in a couple weeks . Additional Instructions or Follow Up instructions: [facility] Mirena IUD placement. Follow-Up Care: Outpatient Rehab - [facility] No Smoking: If you smoke, Please STOP! Call for help. Follow-up with: Roselyn Chen DO [Provider Admit Priv/Credential] -
--- NOTE | 2022-05-03 09:59 | DISCHARGE SUMMARY ---
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 also complicated by no care, daily tobacco use. She initially declined drug screening. After delivery, testing showed positive for amphetamines. - CONSULTS | PROCEDURES Consultations: Anesthesia, SW, Case management, CPS Procedures: Spinal Repeat section - HOSPITAL COURSE Hospital Course: 27yo at about 40w by ED bedside US at 15w presented with her father's girlfriend for painful contractions. History of CD x4. OB US ordered to confirm dating, growth, and to evaluate placental location and assess for accreta in setting of CD x4. No prior US except for bedside in ED at 15w. OB US benign and patient was taken to OR. See operative report for uncomplicated CD. She recovered well. She did not breastfeed due to amphetamine use. Assisted with engorgement. CPS consulted. Baby on hold in nursery. CM/SW arranged for patient to be admitted to rehabilitation in a couple weeks. Patient seems motivated to get to rehabilitation. She was given DepoProvera prior to discharge. Declines LARCs. and postoperative care reviewed. She declined oxycodone prescription, so none was given. Advised regular ibuprofen and acetaminophen us e. She has a follow up appointment in 1w. also complicated by no care, daily tobacco use. She initially declined drug screening. After delivery, testing showed positive for amphetamines. - ALLERGIES Allergies/Adverse Reactions: Allergies Allergy/AdvReac Type Severity Reaction Status Date / Time No Known Drug Allergies Allergy Verified 11/06/21 18:57 - PHYSICAL EXAM AT DISCHARGE General Appearance: positive: No acute distress Respiratory: positive: No respiratory distress Cardiovascular: positive: Regular rate & rhythm Abdomen: positive: Other (soft, appropriately tender, incision c/d/i) Skin: positive: Color nml Extremities: positive: Non-tender Neurologic/Psychiatric: positive: Oriented x3 - LABS Result Diagrams: 04/30/22 05:50 04/29/22 11:04 - DIAGNOSTIC IMAGING Diagnostic Imaging Results: Final report reviewed Diagnostic Imaging Results Comments: OB US - QUALITY (Female Hip Fx Only) Was patient sent home on osteoporosis medication?: No - FOLLOW UP Follow Up: 1 week at - TIME SPENT Time Spent in Discharge (Minutes): 30"
== END 2022-05-02 14:40 | disposition home or self-care (01) | DRG 787 ==
LOC: WFO 10:20 → FBP 10:21 → WFO 10:35 → FBP 10:36
PROVIDERS: ADMIT Obstetrics & Gynecology; ATTEND Obstetrics & Gynecology
PROC: 10D00Z1 Extraction of Products of Conception, Low, Open Approach (ICD-10-PCS; principal; 2022-04-29 10:45)
DX: O34.211 Maternal care for low transverse scar from previous cesarean delivery (principal); O99.324 Drug use complicating childbirth; Z3A.40 40 weeks gestation of pregnancy; Z37.0 Single live birth; O77.0 Labor and delivery complicated by meconium in amniotic fluid; O99.334 Smoking (tobacco) complicating childbirth; F17.210 Nicotine dependence, cigarettes, uncomplicated; F15.10 Other stimulant abuse, uncomplicated; Z11.3 Encounter for screening for infections with a predominantly sexual mode of transmission; Z11.4 Encounter for screening for human immunodeficiency virus [HIV]
CPT/HCPCS: 36415; 76816; 80053; 83036; 85025; 86592; 86762; 86803; 86850; 86900; 86901; 86920; 87340; 87389; 87797; A9270; J0690; J1050; J2274; J7120; 80306; 99215